=== PATIENT | male | born 1975 | race Caucasian/White ===

== ENCOUNTER 2016-11-14 19:08 | Emergency (ER) | payer MEDICAID ==
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
[2016-11-14 19:57] LABS: % BASOPHILS 1.6 % (0.0-2.0); % EOSINOPHILS 6.5 % (0.0-5.0); % LYMPHOCYTES 38.3 % (20.0-50.0); % MONOCYTES 7.1 % (2.0-10.0); % NEUTROPHILS 46.5 % (40.0-80.0); HEMATOCRIT 46.7 % (39.0-49.0); HEMOGLOBIN 16.2 gm/dL (13.2-17.3); MEAN CELL VOLUME 84.2 fl (80-99); MEAN CORPUSCULAR HEMOGLOBIN 29.2 pg (26.0-30.0); MEAN CORPUSCULAR HGB CONC 34.7 pg (28.0-36.0); MEAN PLATELET VOLUME 8.5 fl; NEUTROPHILE ABSOLUTE 2.9 Th/cmm (1.8-8.0); PLATELET COUNT 171 Th/cmm (150-400); RED BLOOD COUNT 5.55 Mil/cmm (4.30-5.70); WHITE BLOOD COUNT 6.1 Th/cmm (4.8-10.8)
[2016-11-14 20:12] LABS: ALB/GLOB RATIO 1.7 (1.0-1.8); ALKALINE PHOSPHATASE 78 U/L (34-104); ANION GAP 12.9 (7.0-16.0); BILIRUBIN,TOTAL 0.5 mg/dL (0.3-1.0); BUN - UREA NITROGEN 12 mg/dL (7-25); CALCIUM SERUM 9.1 mg/dL (8.6-10.3); CARBON DIOXIDE 23.8 mEq/L (21.0-31.0); CHLORIDE 100 mEq/L (98-107); GLUCOSE 303 mg/dL (70-105); POTASSIUM SERUM 3.7 mEq/L (3.5-5.1); SGOT 31 U/L (13-39); SGPT/ALT 35 U/L (7-52); SODIUM SERUM 133 mEq/L (136-145)
[2016-11-14 20:18] LABS: INR 0.97 (0.5-1.4); PROTHROMBIN TIME (TEST) 10.1 SECONDS (9.5-11.5)
[2016-11-14 21:41] LABS: AMPHETAMINE URINE NEGATIVE (NEGATIVE); BARBITURATES URINE NEGATIVE (NEGATIVE); METHADONE URINE NEGATIVE (NEGATIVE)
--- NOTE | 2016-11-15 11:59 | Diagnostic Imaging Report ---
Right ankle (3 views) HISTORY: Pain, trauma No acute bony abnormalities. No fractures. Vascular calcification noted. IMPRESSION: 1. No acute bony abnormalities 2. Vascular calcification In the presence of recent trauma and persistent symptoms, a repeat radiograph in 5-7 days may be helpful for detection of a subtle or occult fracture.
--- NOTE | 2016-11-15 12:03 | Diagnostic Imaging Report ---
Left ankle (3 views) HISTORY: Pain A radiolucency traverses the calcaneus. Nondisplaced fracture cannot be excluded. Clinical correlation needed. Joint spaces appear normal. Vascular calcification is seen. IMPRESSION: 1. Radiolucency traversing the calcaneus. A nondisplaced fracture cannot be excluded. Clinical correlation needed. 2. Atherosclerotic vascular changes In the presence of recent trauma and persistent symptoms, a repeat radiograph in 5-7 days may be helpful for detection of a subtle or occult fracture.
== END 2016-11-14 22:30 | disposition left against medical advice (07) ==
LOC: ER 19:08
DX: S90.02XA Contusion of left ankle, initial encounter (principal); S90.01XA Contusion of right ankle, initial encounter; S90.32XA Contusion of left foot, initial encounter; S90.31XA Contusion of right foot, initial encounter; F10.129 Alcohol abuse with intoxication, unspecified; E11.9 Type 2 diabetes mellitus without complications; W19.XXXA Unspecified fall, initial encounter; Y93.89 Activity, other specified; Y92.89 Other specified places as the place of occurrence of the external cause; Y99.8 Other external cause status
CPT/HCPCS: 36415-UA; 73610-RT-TC; 73610-TC; 80053-TC; 80320-TC; 83036-90; 85025-TC; 85610-TC